=== PATIENT | male | born 1950 | race Hispanic/Latino ===

== ENCOUNTER 2019-01-14 12:00 | Observation (INO) | payer OTHER ==
[~2019-01-14] VITALS: Ht 167.6 cm; Wt 113.1 kg
[2019-01-14 14:25] VITALS: BP 144/76
[2019-01-14] MEDS ORDERED: CARB15DR3 OP (15:10)
[2019-01-14] MEDS ORDERED: SIMV40TA5 PO (15:10)
[2019-01-14] MEDS ORDERED: OMEG100014 PO (15:10)
[2019-01-14] MEDS ORDERED: CARB15DR OU (15:10)
[2019-01-14] MEDS ORDERED: KETOTIFEN OU (15:10)
[2019-01-14] MEDS ORDERED: METF-445 PO (15:10)
[2019-01-14] MEDS ORDERED: TRAM50TA4 PO (15:10)
[2019-01-14] MEDS ORDERED: ASPI-555 PO (15:10)
[2019-01-14] MEDS ORDERED: CHOL100018 PO (15:10)
[2019-01-14] MEDS ORDERED: SULF500T8 PO ×2 (15:10)
[2019-01-14] MEDS ORDERED: OMEP20TA25 PO (15:10)
[2019-01-14] MEDS ORDERED: BETA1TAB20 PO (15:10)
[2019-01-14] MEDS ORDERED: GLIP10TA9 PO (15:10)
[2019-01-15] VITALS (20 sets, daily range): BP systolic 112–158; BP diastolic 59–89
[2019-01-15] MEDS: CEFAZOLIN SODIUM 1 GM VIAL IVP SCH ×2 (06:00→08:14)
[2019-01-15] MEDS ORDERED: SODIUM CHLORIDE 0.9% 1000ML 1,000 ML IV ONE (07:05)
[2019-01-15] MEDS ORDERED: LIDOCAINE PF 2% 5ML ABBOJECT ONE (07:19)
[2019-01-15] MEDS ORDERED: PROPOFOL 10 MG/ML 20ML VIAL IV ONE (07:20)
[2019-01-15] MEDS ORDERED: ROCURONIUM 10MG/1ML SYR 10 MG/ML ML ONE ×2 (07:20→08:13)
[2019-01-15] MEDS ORDERED: MIDAZOLAM HCL 1 MG/ML 2ML VIAL ONE (07:20)
[2019-01-15] MEDS ORDERED: FENTANYL CITRATE PF 50 MCG/1 ML 2ML VIAL ONE (07:20)
[2019-01-15] MEDS ORDERED: ROPIVACAINE 0.5% 5MG/ML 30ML IJ ONE ×2 (07:20→07:25)
[2019-01-15] MEDS ORDERED: ONDANSETRON HCL 4 MG/2 ML VIAL ONE (07:22)
[2019-01-15] MEDS ORDERED: KETAMINE HCL 100 MG/ML 5ML VIAL IJ ONE (07:25)
[2019-01-15] MEDS ORDERED: PROPOFOL 1000 MG/100 ML 100 ML IV ONE (07:26)
[2019-01-15] MEDS ORDERED: DEXAMETHASONE SOD PHOSPHATE 10MG/ML 1ML VIAL ONE (07:28)
[2019-01-15] MEDS ORDERED: GLYCOPYRROLATE 1 MG/5 ML SYRINGE ONE (07:46)
[2019-01-15] MEDS ORDERED: NEOSTIGMINE 5MG/5ML SYR IV ONE (09:31)
[2019-01-15 10:28] LABS: HEMATOCRIT 36.2 % (42-54)
--- NOTE | 2019-01-15 11:30 | NUR ---
PT ARRIVED TO THE FLOOR PT ALERT , ORIENTED X 4 DENIES SOB OR CHEST PAIN NOTICED SMALL FACIAL DROOPING ON LEFT SIDE PT DENIES NUMBNESS, TINGLING NO LEFT SIDE WEAKNESS NOTED ON UPPER NOR LOWER EXTREMITIETS PT ABLE TO MOVE HAND AND FINGERS ON RIGHT UPPER EXTREMITY RIGHT LOWER EXTREMITY NO WEAKNESS NOTED NO SLURRED SPEECH NOTED EITHER CHARGE NURSE, PROSPER, AND BE NOTIFIED FOOD SAFETY MANAGER. JOELLEN NOTIFIED WELL, IN ROOM WITH PT ASSESSED PT, STATED IS PROB FROM ANESTHESIA NO NEW ORDERS GIVEN . DR. BATES NOTIFIED . NO NEW ORDERS WILL CONTINUE TO MONITOR PT , CALL LIGHT AT BED SIDE, WITH TEACH BACK ON USAGE
[2019-01-15] MEDS: ARTIFICAL TEARS SOL 15 ML OU SCH ×3 (13:00→21:00)
[2019-01-15] MEDS ORDERED: MORPHINE SULFATE 10 MG/ML 1ML SYG IM PRN (14:15)
[2019-01-15] MEDS ORDERED: LACTATED RINGERS 1000ML 1,000 ML IV SCH (14:15)
[2019-01-15] MEDS ORDERED: BISACODYL 10 MG SUPP.RECT RC PRN (14:15)
[2019-01-15] MEDS ORDERED: PROMETHAZINE HCL 25 MG/ML 1ML AMPULE IM PRN (14:15)
[2019-01-15] MEDS ORDERED: MAGNESIUM HYDROXIDE 30 ML/UDCUP PO PRN (14:15)
[2019-01-15] MEDS ORDERED: ACETAMINOPHEN 325 MG TAB PO PRN (14:15)
[2019-01-15] MEDS ORDERED: GENTAMICIN 80 MG/NS 100 ML PB 100 ML IV SCH (14:30)
[2019-01-15] MEDS: CEFAZOLIN 3GM /D5W 100ML 100 ML IV SCH ×2 (14:39→22:08)
[2019-01-15] MEDS ORDERED: COMPOUND IV REFRIGERATED 1 EACH IVSOLN MISC PRN (14:45)
[2019-01-15] MEDS: INSULIN HUMULIN R 100 UNIT/ML 3ML SQ SCH ×2 (16:55→21:00)
[2019-01-15] MEDS: ONDANSETRON HCL 4 MG/2 ML VIAL IVP PRN (16:56)
[2019-01-15] MEDS: MORPHINE SULFATE 5 MG/ML VIAL IV PRN ×2 (16:58→22:08)
[2019-01-15 18:10] LABS: HEMATOCRIT 40.2 % (42-54)
[2019-01-15] MEDS: FISH OIL 1000 MG/CAP PO SCH (20:15)
[2019-01-15] MEDS ORDERED: SIMVASTATIN 20 MG TABLET PO SCH (21:00)
[2019-01-15] MEDS ORDERED: SULFASALAZINE 500 MG TAB.DR PO SCH (21:00)
[2019-01-15] MEDS: **HM** PRESERVISION AREDS PO SCH (21:00)
[2019-01-16 00:39] LABS: HEMATOCRIT 37.3 % (42-54)
[2019-01-16] MEDS: MORPHINE SULFATE 5 MG/ML VIAL IV PRN ×2 (04:04→09:01)
[2019-01-16 04:52] LABS: BASOPHILS % (AUTO) 0.3 % (0.0-5.0); HEMATOCRIT 36.5 % (42-54); LYMPHOCYTES % (AUTO) 12.8 % (21.0-51.0); MEAN CORPUSCULAR HEMOGLOBIN 31.1 pg (27.0-33.0); MEAN CORPUSCULAR VOLUME 91.6 fL (79-99); MONOCYTES % (AUTO) 11.4 % (3.0-13.0); NEUTROPHILS % (AUTO) 75.5 % (40.0-77.0); NUCLEATED RED BLOOD CELLS 0.1 % (0.0-0.19); PLATELET COUNT (AUTO) 172 K/uL (130-400); RED BLOOD CELL COUNT(AUTO) 3.99 MIL/uL (4.50-6.20); RED CELL DISTRIBUTION WIDTH 16.2 % (11.0-15.5)
[2019-01-16] MEDS: CEFAZOLIN 3GM /D5W 100ML 100 ML IV SCH (05:05)
[2019-01-16 05:17] LABS: POTASSIUM 3.6 mmol/L (3.5-5.1)
[2019-01-16] MEDS: INSULIN HUMULIN R 100 UNIT/ML 3ML SQ SCH ×2 (06:28→11:56)
[2019-01-16 06:34] LABS: HEMATOCRIT 38.8 % (42-54)
[2019-01-16] MEDS ORDERED: TYL3 PO (06:38)
[2019-01-16 08:12] VITALS: BP 133/72
[2019-01-16] MEDS: FISH OIL 1000 MG/CAP PO SCH (08:37)
[2019-01-16] MEDS: ARTIFICAL TEARS SOL 15 ML OU SCH ×2 (08:38→12:54)
[2019-01-16] MEDS: **HM** PRESERVISION AREDS PO SCH (08:38)
[2019-01-16] MEDS ORDERED: PANTOPRAZOLE SODIUM 40 MG TABLET.DR PO SCH (09:00)
[2019-01-16] MEDS ORDERED: SULFASALAZINE 500 MG TAB.DR PO SCH (09:00)
[2019-01-16] MEDS ORDERED: **HM** VIT D3 1000 UNITS PO SCH (09:00)
[2019-01-16] MEDS ORDERED: [UNRECOGNIZED DRUG - OTHER] OU SCH (09:00)
[2019-01-16] MEDS ORDERED: ENOXAPARIN SODIUM 40 MG/0.4 ML SYRINGE SQ SCH (09:00)
[2019-01-16] MEDS ORDERED: ASPIRIN 81MG TAB.CHEW PO SCH (09:00)
[2019-01-16] MEDS: ONDANSETRON HCL 4 MG/2 ML VIAL IVP PRN (09:01)
[2019-01-16 11:41] VITALS: BP 136/75
--- NOTE | 2019-01-16 15:00 | NUR ---
INSTRUCTIONS DISCHARGE INSTRUCTIONS GIVEN TO PATIENT AND FAMILY USING TEACH BACK. F/U APPOINTMENT MADE. NEW PRESCRIPTION PLACED IN PACKET ALONG WITH ALL PRINTED INFORMATION AND INSTRUCTIONS. NO QUESTIONS OR CONCERNS VOICED. IV REMOVED WITH TIP INTACT. DIRECT PRESSURE APPLIED UNTIL BLEEDING CONTROLLED THEN SITE COVERED WITH GAUZE AND SECURED WITH A BAND-AID.
--- NOTE | 2019-01-16 15:15 | NUR ---
TRANSPORT PATIENT TRANSPORTED TO PRIVATE VEHICLE VIA W/C BY RABIA REGAN. ALL PERSONAL BELONGINGS WITH FAMILY. NO C/O PAIN AT THIS TIME.
== END 2019-01-16 15:13 | disposition home or self-care (01) ==
LOC: EDSTATUS 12:00 → DAHIP 01-15 06:33 → 4AH 01-15 10:28
DX: M75.100 Unspecified rotator cuff tear or rupture of unspecified shoulder, not specified as traumatic (principal); E78.00 Pure hypercholesterolemia, unspecified; E78.5 Hyperlipidemia, unspecified; H40.9 Unspecified glaucoma; E11.9 Type 2 diabetes mellitus without complications; I10 Essential (primary) hypertension; K21.9 Gastro-esophageal reflux disease without esophagitis; M06.9 Rheumatoid arthritis, unspecified; M19.90 Unspecified osteoarthritis, unspecified site; M75.41 Impingement syndrome of right shoulder; Z87.891 Personal history of nicotine dependence; Z96.611 Presence of right artificial shoulder joint; Z80.6 Family history of leukemia; Z79.899 Other long term (current) drug therapy
CPT/HCPCS: 29824; 29826; 29827; 36415 ×2; 80048; 82948 ×6; 85014 ×4; 85018 ×4; 85025; 88304; 88311; 94760; 96365; 96366 ×2; 96372 ×2; 96375 ×2; 96376 ×3; 97116 ×2; 97161; A4218; A4930; A6223; C1713 ×2; G0378 ×34; G8978; G8979; G8980; G8981; G8982; G8983; J0690 ×2; J1100; J1650; J1815 ×3; J2001; J2250; J2270 ×4; J2405 ×3; J2704 ×2; J2710; J2795 ×2; J3010; J3490 ×2; J7030 ×2